=== PATIENT | male | born 1945 | race Caucasian/White ===

== ENCOUNTER 2018-02-28 21:01 | Emergency (ER) | payer MEDICARE, OTHER ==
[~2018-02-28] VITALS: Ht 182.9 cm; Wt 117.9 kg
[~2018-02-28 21:01] MED LIST: ALBU90OI61 INH; ALPHA LIPOIC A600 MG PO; Adult Low Dose81 MG PO; CARNITINE; CEPH500 PO; CLON1 PO; DULO60 PO; FISH1000 PO; Flunisolide25 ML NS; GEMF600 PO; GLUCOSAMINE &1 EACH PO; GRAPESEED OIL4000 ML PO; IBUP600 PO; MOME.1TC TOP; MONT10T PO; Multiple Vitam1 EAC1 PO; NEBI10 PO; OLME20 PO; OMEP20ER PO; Omeprazole20 M1; PRAV20 PO; RXCLIN PO; SITA50T2 PO; Saw Palmetto450 MG PO; TAMS.4ER PO; TOBDEXOPSU BOTHEYES; TRAM50 PO; VITA25000 PO; [UNRECOGNIZED DRUG - REMARK]; [UNRECOGNIZED DRUG - REMARK]
[2018-02-28 21:38] LABS: BASOPHILS ABSOLUTE AUTO 0.04 K/mm3 (0.00-0.23); BASOPHILS PERCENT AUTO 1 % (0-2); EOSINOPHILS ABSOLUTE AUTO 0.27 K/mm3 (0.00-0.68); EOSINOPHILS PERCENT AUTO 3 % (0-6); Hematocrit 44.9 % (37.0-53.0); Hemoglobin 14.9 g/dL (13.5-17.5); IMMATURE GRAN ABSOLUTE AUTO 0.02 K/mm3 (0.00-0.10); IMMATURE GRAN PERCENT AUTO 0 % (0-1); LYMPHOCYTES ABSOLUTE AUTO 1.97 K/mm3 (0.84-5.20); LYMPHOCYTES PERCENT AUTO 23 % (21-46); MONOCYTES ABSOLUTE AUTO 0.73 K/mm3 (0.16-1.47); MONOCYTES PERCENT AUTO 9 % (4-13); Mean Corpuscular HGB 31.2 pg (26.0-34.0); Mean Corpuscular HGB Conc 33.2 g/dL (31.5-36.5); Mean Corpuscular Volume 94 fL (80-100); Mean Platelet Volume 9.8 fL (9.1-12.4); NEUTROPHILS ABSOLUTE AUTO 5.41 K/mm3 (1.96-9.15); NEUTROPHILS PERCENT AUTO 64 % (41-73); Platelet Count 249 K/mm3 (150-400); RDW Coefficient Variation 12.6 % (11.7-14.2); RDW Standard Deviation 43.7 fL (35.1-46.3); Red Blood Cell Count 4.77 M/mm3 (4.30-5.90); White Blood Cell Count 8.44 K/mm3 (4.00-11.30)
[2018-02-28 21:55] LABS: Albumin, Blood 3.6 g/dL (3.4-5.0); Albumin/Globulin Ratio 0.9 (0.8-1.8); Bilirubin, Total 0.8 mg/dL (0.1-1.0); Bun/Creatinine Ratio 13.5 (12.0-20.0); Calcium, Blood 8.6 mg/dL (8.5-10.1); Creatinine, Blood 1.48 mg/dL (0.60-1.20); Globulin, Blood 3.8 g/dL (2.2-4.0); Potassium, Blood 4.1 mmol/L (3.5-5.5); Total Protein, Blood 7.4 g/dL (6.4-8.2)
[2018-02-28] MEDS ORDERED: Percocet 5-3251 EACH PO (23:39)
[2018-02-28] MEDS ORDERED: Zofran8 MG PO (23:54)
== END 2018-03-01 00:11 | disposition home or self-care (01) ==
LOC: ER 21:01
PROVIDERS: Emergency Medicine
DX: N13.2 Hydronephrosis with renal and ureteral calculous obstruction (principal); N18.4 Chronic kidney disease, stage 4 (severe); R79.89 Other specified abnormal findings of blood chemistry; J45.909 Unspecified asthma, uncomplicated; Z79.899 Other long term (current) drug therapy
CPT/HCPCS: 36415; 74176; 80053; 83690; 85025; 96374; 96375; 99284; J1200; J1885; J2765; J3010; J7120

== ENCOUNTER 2018-03-27 06:46 | Day surgery (SDC) | payer MEDICARE, OTHER ==
[~2018-03-27] VITALS: Ht 182.9 cm; Wt 119.1 kg
[~2018-03-27 06:46] MED LIST changes: +Percocet 5-3251 EACH PO; +Zofran8 MG PO
== END 2018-03-27 11:05 | disposition home or self-care (01) ==
LOC: ORSCSDS 06:46
PROVIDERS: Podiatrist Foot & Ankle Surgery
PROC: 0L8P0ZZ Division of Left Lower Leg Tendon, Open Approach (ICD-10-PCS; principal; 2018-03-27 08:15)
PROC: 0J8R0ZZ Division of Left Foot Subcutaneous Tissue and Fascia, Open Approach (ICD-10-PCS; principal; 2018-03-27 08:15)
DX: M24.572 Contracture, left ankle (principal); M72.2 Plantar fascial fibromatosis; M77.32 Calcaneal spur, left foot; I10 Essential (primary) hypertension; I48.91 Unspecified atrial fibrillation; I25.10 Atherosclerotic heart disease of native coronary artery without angina pectoris; E11.9 Type 2 diabetes mellitus without complications; Z79.84 Long term (current) use of oral hypoglycemic drugs; Z79.899 Other long term (current) drug therapy
CPT/HCPCS: 82947; J0171; J0690; J2250; J3010; J7040; J7120

== ENCOUNTER 2018-06-11 13:26 | Emergency (ER) | payer MEDICARE, OTHER ==
[~2018-06-11] VITALS: Ht 182.9 cm; Wt 117.9 kg
[2018-06-11 14:45] LABS: BASOPHILS ABSOLUTE AUTO 0.04 K/mm3 (0.00-0.23); BASOPHILS PERCENT AUTO 1 % (0-2); EOSINOPHILS ABSOLUTE AUTO 0.28 K/mm3 (0.00-0.68); EOSINOPHILS PERCENT AUTO 3 % (0-6); Hematocrit 42.6 % (37.0-53.0); Hemoglobin 14.2 g/dL (13.5-17.5); IMMATURE GRAN ABSOLUTE AUTO 0.03 K/mm3 (0.00-0.10); IMMATURE GRAN PERCENT AUTO 0 % (0-1); LYMPHOCYTES ABSOLUTE AUTO 1.63 K/mm3 (0.84-5.20); LYMPHOCYTES PERCENT AUTO 19 % (21-46); MONOCYTES ABSOLUTE AUTO 0.62 K/mm3 (0.16-1.47); MONOCYTES PERCENT AUTO 7 % (4-13); Mean Corpuscular HGB 31.2 pg (26.0-34.0); Mean Corpuscular HGB Conc 33.3 g/dL (31.5-36.5); Mean Corpuscular Volume 94 fL (80-100); Mean Platelet Volume 10.1 fL (9.1-12.4); NEUTROPHILS ABSOLUTE AUTO 5.94 K/mm3 (1.96-9.15); NEUTROPHILS PERCENT AUTO 69 % (41-73); Platelet Count 227 K/mm3 (150-400); RDW Coefficient Variation 12.3 % (11.7-14.2); RDW Standard Deviation 42.6 fL (35.1-46.3); Red Blood Cell Count 4.55 M/mm3 (4.30-5.90); White Blood Cell Count 8.54 K/mm3 (4.00-11.30)
[2018-06-11 15:02] LABS: Alanine Aminotransfer (ALT/SGP 38 U/L (12-78); Albumin, Blood 3.3 g/dL (3.4-5.0); Albumin/Globulin Ratio 0.9 (0.8-1.8); Alk Phos 75 U/L (50-136); Anion Gap 6 mmol/L (6-16); Aspartate Aminotrans (AST/SGOT 28 U/L (12-37); Bilirubin, Total 1.1 mg/dL (0.1-1.0); Blood Urea Nitrogen 22 mg/dL (8-24); Bun/Creatinine Ratio 17.7 (12.0-20.0); CO2, Blood 28 mmol/L (21-32); Calcium, Blood 8.3 mg/dL (8.5-10.1); Chloride, Blood 109 mmol/L (98-108); Creatinine, Blood 1.24 mg/dL (0.60-1.20); Globulin, Blood 3.5 g/dL (2.2-4.0); Glomerular Filtration Rate >60 (60-); Glucose, Blood 110 mg/dL (70-99); Potassium, Blood 4.5 mmol/L (3.5-5.5); Sodium, Blood 143 mmol/L (136-145); Total Protein, Blood 6.8 g/dL (6.4-8.2)
[2018-06-11] MEDS ORDERED: KETO10 PO (15:58)
[2018-06-11] MEDS ORDERED: ULTRA-LIGHT RO1 EACH MC (15:58)
[2018-06-11] MEDS ORDERED: Norco 5-325 Ta1 EACH PO (15:58)
== END 2018-06-11 16:20 | disposition home or self-care (01) ==
LOC: ER 13:26
PROVIDERS: Physician Assistant
DX: S76.111A Strain of right quadriceps muscle, fascia and tendon, initial encounter (principal); J45.909 Unspecified asthma, uncomplicated; X50.1XXA Overexertion from prolonged static or awkward postures, initial encounter
CPT/HCPCS: 29505; 73502; 80053; 85025; 96374; 99284-25; J3010

== ENCOUNTER 2019-01-14 07:25 | Day surgery (SDC) | payer MEDICARE, OTHER ==
[~2019-01-14] VITALS: Ht 182.9 cm; Wt 121.0 kg
[~2019-01-14 07:25] MED LIST changes: +ATOR40TA PO; +CARNITINE PO; +CLON2 PO; +COMBIVENT RESPIM4 GM INH; +Fish Oil 10001000 MG PO; +Flunisolide25 ML; +GNP GLUCOSAMIN1 EAC2 PO; +KETO10 PO; +MULTI VITAMIN1 EACH PO; +Norco 5-325 Ta1 EACH PO; +Omeprazole20 M1 PO; +SITA100T2 PO; +ULTRA-LIGHT RO1 EACH MC
== END 2019-01-14 09:49 | disposition home or self-care (01) ==
LOC: ORSCSDS 07:25
PROVIDERS: Internal Medicine Gastroenterology
PROC: 0DBL8ZX Excision of Transverse Colon, Via Natural or Artificial Opening Endoscopic, Diagnostic (ICD-10-PCS; principal; 2019-01-14 08:45)
DX: R19.4 Change in bowel habit (principal); D12.3 Benign neoplasm of transverse colon; K57.30 Diverticulosis of large intestine without perforation or abscess without bleeding; K64.8 Other hemorrhoids; E11.65 Type 2 diabetes mellitus with hyperglycemia; I10 Essential (primary) hypertension; G47.33 Obstructive sleep apnea (adult) (pediatric); I25.10 Atherosclerotic heart disease of native coronary artery without angina pectoris; I48.91 Unspecified atrial fibrillation; Z79.84 Long term (current) use of oral hypoglycemic drugs; Z79.899 Other long term (current) drug therapy
CPT/HCPCS: 82947; 88305; J0461; J1980; J2405; J2704; J7120

== ENCOUNTER 2019-02-11 07:26 | Day surgery (SDC) | payer MEDICARE, OTHER ==
[~2019-02-11] VITALS: Ht 185.4 cm; Wt 119.6 kg
[2019-02-11] MEDS ORDERED: NEBI10 (08:18)
--- NOTE | 2019-02-11 10:02 | NUR ---
02/11/19 1002 Elena Stern 5ML NORMAL SALINE USED TO ELEVATE CECAL POLYP
== END 2019-02-11 10:39 | disposition home or self-care (01) ==
LOC: ORSCSDS 07:26
PROVIDERS: Internal Medicine Gastroenterology
PROC: 0DBH8ZX Excision of Cecum, Via Natural or Artificial Opening Endoscopic, Diagnostic (ICD-10-PCS; principal; 2019-02-11 09:00)
PROC: 0DBL8ZX Excision of Transverse Colon, Via Natural or Artificial Opening Endoscopic, Diagnostic (ICD-10-PCS; principal; 2019-02-11 09:00)
PROC: 0DBK8ZX Excision of Ascending Colon, Via Natural or Artificial Opening Endoscopic, Diagnostic (ICD-10-PCS; principal; 2019-02-11 09:00)
DX: R19.4 Change in bowel habit (principal); D12.0 Benign neoplasm of cecum; D12.2 Benign neoplasm of ascending colon; D12.3 Benign neoplasm of transverse colon; K57.30 Diverticulosis of large intestine without perforation or abscess without bleeding; K64.8 Other hemorrhoids; G47.33 Obstructive sleep apnea (adult) (pediatric); I25.10 Atherosclerotic heart disease of native coronary artery without angina pectoris; I10 Essential (primary) hypertension; I48.91 Unspecified atrial fibrillation; E11.9 Type 2 diabetes mellitus without complications; E78.5 Hyperlipidemia, unspecified; Z79.84 Long term (current) use of oral hypoglycemic drugs; Z79.899 Other long term (current) drug therapy
CPT/HCPCS: 82947; 88305; J1980; J2405; J2704; J7120

== ENCOUNTER 2019-06-07 07:34 | Day surgery (SDC) | payer MEDICARE, OTHER ==
[~2019-06-07] VITALS: Ht 182.9 cm; Wt 118.0 kg
[~2019-06-07 07:34] MED LIST changes: +BUDE6HFA INH; +FLUT1DIS5 INH; +PRAZ1 PO
--- NOTE | 2019-06-07 09:35 | NUR ---
Ambulatory in Day Surgery. Surgical site prepped with 2% Chlorhexidine cloth wipe. History, Chart, Medications and Allergies reviewed before start of procedure. Lungs clear T/O to Auscultation. Patient confirms NPO status and agrees with scheduled surgery. Pre-Op teaching done. Pt verbalizes understanding. Patient reports completing Chlorhexadine shower X2 prior to admission to hospital.
--- NOTE | 2019-06-07 17:19 | NUR ---
SHIFT SUMMARY PT A&OX4, VSS, S/P R TKA, AQUACEL CDI, POLAR ALEXANDRA, TEDS, SCDS ON. DENIES PAIN AT THIS TIME. ANDRES PO, DENIES N&V. PHYSICAL THERAPY EVAL'D; PT UP TO CHAIR, STAND/PIVOT W/FWW & GB. AWAITING POST VOID. UP TO CHAIR. AT BEDSIDE. WILL REPORT TO ONCOMING RN.
--- NOTE | 2019-06-08 01:10 | NUR ---
0110: RECEIVED REPORT AND ASSUMED CARE OF PT FROM PREVIOUS RN. PT LYING ON LEFT SIDE IN BED WITH 2L O2 VIA NC BECAUSE HE "FORGOT CPAP AT HOME" PT DENIES PAIN @ THIS TIME. CALL LIGHT IN REACH.
[2019-06-08 03:49] LABS: BASOPHILS ABSOLUTE AUTO 0.02 K/mm3 (0.00-0.23); BASOPHILS PERCENT AUTO 0 % (0-2); EOSINOPHILS ABSOLUTE AUTO 0.01 K/mm3 (0.00-0.68); EOSINOPHILS PERCENT AUTO 0 % (0-6); Hematocrit 38.9 % (37.0-53.0); Hemoglobin 13.2 g/dL (13.5-17.5); IMMATURE GRAN ABSOLUTE AUTO 0.11 K/mm3 (0.00-0.10); IMMATURE GRAN PERCENT AUTO 1 % (0-1); LYMPHOCYTES ABSOLUTE AUTO 1.51 K/mm3 (0.84-5.20); LYMPHOCYTES PERCENT AUTO 8 % (21-46); MONOCYTES ABSOLUTE AUTO 0.84 K/mm3 (0.16-1.47); MONOCYTES PERCENT AUTO 5 % (4-13); Mean Corpuscular HGB 31.1 pg (26.0-34.0); Mean Corpuscular HGB Conc 33.9 g/dL (31.5-36.5); Mean Corpuscular Volume 92 fL (80-100); NEUTROPHILS ABSOLUTE AUTO 15.71 K/mm3 (1.96-9.15); NEUTROPHILS PERCENT AUTO 86 % (41-73); Platelet Count 265 K/mm3 (150-400); RDW Coefficient Variation 12.2 % (11.7-14.2); RDW Standard Deviation 40.6 fL (35.1-46.3); Red Blood Cell Count 4.24 M/mm3 (4.30-5.90)
[2019-06-08 04:10] LABS: Anion Gap 7 mmol/L (6-16); Blood Urea Nitrogen 31 mg/dL (8-24); Bun/Creatinine Ratio 25.2 (12.0-20.0); CO2, Blood 26 mmol/L (21-32); Calcium, Blood 7.9 mg/dL (8.5-10.1); Chloride, Blood 107 mmol/L (98-108); Creatinine, Blood 1.23 mg/dL (0.60-1.20); Glomerular Filtration Rate >60 (60-); Glucose, Blood 149 mg/dL (70-99); Magnesium, Blood 2.2 mg/dL (1.6-2.4); Sodium, Blood 140 mmol/L (136-145)
--- NOTE | 2019-06-08 05:50 | NUR ---
SUMMARY: POD [address] GUERRA. VSS, AFEBRILE. 2L 02 WHILE ASLEEP BECAUSE PT DID NOT BRING HOME CPAP. TOLERATING PO INTAKE WELL, VOIDING AND AMBULATES IN HALLS WITH FWW AND 1 ASSIST. PAIN WELL CONTROLLED WITH TYLENOL, TORDAL, AND 10MG ROXICODONE X2 THIS SHIFT. ANTICIPATE PT/OT TODAY, ENCOURAGE OOB ACTIVITY AND ANTICIPATED DC HOME LATER THIS DAY.
[2019-06-08] MEDS ORDERED: ROXICODONE5 MG PO (10:03)
[2019-06-08] MEDS ORDERED: ACET500 PO (10:04)
[2019-06-08] MEDS ORDERED: XARELTO15 MG PO (10:04)
--- NOTE | 2019-06-08 13:31 | NUR ---
top half of dressing saturated with blood and oozing out side onto 4x4's held in place with duy wrap. Everything removed, incision cleansed with hydrogen peroxide top portion of incision with slow oozing of blood. covered with new aquacel not sealing well on patients skin. reinforced and pressure applied with new duy wrap. Dr. Finney notified. Hold Xarelto for 2 days, Keflex 500mg BID, follow up with Dr. Finney in 1 week.
--- NOTE | 2019-06-08 15:16 | NUR ---
DISCHARGE SUMMARY PT A&OX4, VSS, LEFT FLOOR VIA WC WITH ARMOR OFFICER, TO GO HOME WITH , WITH ALL PERSONAL POSSESSIONS INCLUDING DISCHARGE PACKET INCLUDING 1 NARC SCRIPT AND SEVERAL AQUACEL, 4X4S, ABD PADS, MILE WRAPS. SCRIPTS WERE FAXED/CALLED TO [facility]: KEFLEX AND XARELTO (START 06/10/19). DC INSTRUCTIONS PROVIDED. PT REP UNDERSTANDING THOSE INSTRUCTIONS INCLUDING 1 WK FU WITH SURGEON, WHEN TO CALL SURGEON, WHEN AND HOW TO CHANGE DRESSINGS, NOT TO START XARELTO UNTIL 06/10, OK TO SHOWER NO TUBS/JACUZZI SUBMERSION, SHORT FREQ AMBULATION WITH FWW. IV DC'D.
== END 2019-06-08 14:27 | disposition home or self-care (01) ==
LOC: ORSCMMR 07:34 → ORD 10:30 → ORSCMMR 10:30 → ORD 10:45 → SURS 14:42 → ORSCMMR 06-08 14:27
PROVIDERS: Orthopaedic Surgery
PROC: 0SRC0J9 Replacement of Right Knee Joint with Synthetic Substitute, Cemented, Open Approach (ICD-10-PCS; principal; 2019-06-07 10:30)
DX: M17.11 Unilateral primary osteoarthritis, right knee (principal); I12.9 Hypertensive chronic kidney disease with stage 1 through stage 4 chronic kidney disease, or unspecified chronic kidney disease; E11.22 Type 2 diabetes mellitus with diabetic chronic kidney disease; N18.9 Chronic kidney disease, unspecified; G47.33 Obstructive sleep apnea (adult) (pediatric); J45.909 Unspecified asthma, uncomplicated; E66.01 Morbid (severe) obesity due to excess calories; Z68.35 Body mass index [BMI] 35.0-35.9, adult; Z79.899 Other long term (current) drug therapy
CPT/HCPCS: 36415; 73560-RT; 80048; 82947; 83735; 85025; 88300; 94640; 94760; 97110; 97116; 97162; 97530; C1776; J0171; J0690; J0735; J1100; J1885; J2250; J2370; J2405; J2704; J2765; J2795; J3010; J7120

== ENCOUNTER 2020-10-06 11:05 | Day surgery (SDC) | payer MEDICARE, OTHER ==
[~2020-10-06] VITALS: Ht 185.4 cm; Wt 121.3 kg
[~2020-10-06 11:05] MED LIST changes: +ACET500 PO; +ROXICODONE5 MG PO; +XARELTO15 MG PO
--- NOTE | 2020-10-06 13:10 | NUR ---
10/06/20 1310 Kay Harris S PT.'S BP 204/96, SEE OTHER VITALS BP 201/94, 213/98. PT. HAVING RIGHT FLANK PAIN RATING A "9". PT. ALSO HAS RIGHT HIP PAIN ALL THE TIME. PT. VERBALIZES KNOWING HIS BP IS HIGH TODAY & VERBALIZES HIS BP IS USUALLY IN THE 120'S. DR. GARCIA & DR. CORONA NOTIFIED. PER DR. GARCIA PT. NEEDS TO GO TO THE ER TO CHECK OUT WHY HE IS HAVING PAIN & FOR HIS ELEVATED BP. PT. NOTIFIED OF THIS & HE VERBALIZES THAT HE ISN'T LEAVING UNTIL HE HAS HIS PROCEDURE DONE. PT. INSTRUCTED THAT DR. CORONA WILL COME TALK WITH HIM. PT. LAYING ON HIS LEFT SIDE WITH A WARM BLANKET ON HIS RIGHT FLANK. PT. VERBALIZES BEING WARM ENOUGH. CALL LIGHT IS WITHIN REACH.
--- NOTE | 2020-10-06 16:17 | NUR ---
10/06/20 1617 Kay Harris S PT. DROWSY BUT OPENS EYES WHEN ASKED TO. PT. STATES "ALOT BETTER" TO HIS RIGHT FLANK PAIN. DR. GARCIA CHECKING ON HIM. RIGHT FLANK PAIN "4". 151 PT. C/O RIGHT FLANK PAIN GETTING WORSE NOW, ORDER WAS GIVEN FOR 25MCG IV FENTANYL PER DR. GARCIA BUT PT. VERBALIZED NOT WANTING THAT DRUG. DR. GARCIA & DR. CORONA VERBALIZING THAT PT. CAN GO TO THE ER SINCE HIS PAIN IS WORSE. PT. RATING HIS PAIN A "9-10. BP 189/81. PT. VERBALIZED NEEDING TO USE URINAL, PT. WITH 50ML CLEAR URINE OUT. PT. VERBALIZED THAT WHEN HE URINATED THAT IT WAS SLOW TO START & WAS BURNING. 151 ORDER WAS GIVEN PER DR. CORONA THAT IT WAS OK TO LEAVE IV IN WHEN PT. TAKEN TO ER. PT. WANTED [facility] [place] TO [place]KE HIM TO THE ER. WAS NOTIFIED OF EVENTS ABOVE & THAT WE WOULD MEET HER IN ER. 1530 PT. VERBALIZING WANTING TO TAKE THE FENTANYL BECAUSE HIS PAIN WAS A "10", 25MCG IV FENTANYL GIVEN.V.S. 152 BP 182/88, HR 59, SATS 93%RA, RR 20. PT. ENC. TO TAKE DEEP BREATHS, PT. VERBALIZED IT HURT HIS RIGHT FLANK AREA TO TAKE DEEP BREATHS, PT. LAYING ON HIS LEFT SIDE. 1540 PT. HELPED INTO WC WITH 2 SBA. PT. VERBALIZES FENTANYL NOT HELPING HIS PAIN. PT. INSTRUCTED THAT WE WOULD TAKE HIM TO ER & THEY COULD CONTINUE ASSESSING HIS PAIN. PT. WAS THIRSTY BUT INSTRUCTED PT. THAT HE PROBABLY SHOULDN'T DRINK ANYTHING AT THIS TIME IN CASE THEY NEEDED TO DO ANY TEST. PT. AGREED. ER WAS CALLED & SPOKE TO GRACIA CAMERON & GAVE HER REPORT ON THIS PT. GRACIA NOTIFIED THAT THIS WAS NOT A DR./[facility] ADMIT, IT WAS A PT. ADMIT BUT TOOK PT. IN WC THRU BACK HALLWAY TO FRONT ADMITTING AREA OF ER. PT.'S WAS WAITING FOR PT. IN ER WAITING AREA. PT. BELONGINGS, CLOTHES, CANE, DISCHARGE INSTRUCTION WITH PT. TO ER. PT. WAS TAKEN OVER IN GOWN FROM [facility].
[2020-10-06] MEDS ORDERED: TAMS.4ER PO (19:57)
[2020-10-06] MEDS ORDERED: HYDACE10B PO (19:57)
== END 2020-10-06 15:40 | disposition home or self-care (01) ==
LOC: ORSCSDS 11:05
PROVIDERS: Internal Medicine Gastroenterology
PROC: 0DBL8ZX Excision of Transverse Colon, Via Natural or Artificial Opening Endoscopic, Diagnostic (ICD-10-PCS; principal; 2020-10-06 12:45)
PROC: 0DBP8ZX Excision of Rectum, Via Natural or Artificial Opening Endoscopic, Diagnostic (ICD-10-PCS; principal; 2020-10-06 12:45)
PROC: 0DBH8ZX Excision of Cecum, Via Natural or Artificial Opening Endoscopic, Diagnostic (ICD-10-PCS; principal; 2020-10-06 12:45)
PROC: 0DB58ZX Excision of Esophagus, Via Natural or Artificial Opening Endoscopic, Diagnostic (ICD-10-PCS; principal; 2020-10-06 12:45)
PROC: 0D757ZZ Dilation of Esophagus, Via Natural or Artificial Opening (ICD-10-PCS; principal; 2020-10-06 12:45)
PROC: 0DBN8ZX Excision of Sigmoid Colon, Via Natural or Artificial Opening Endoscopic, Diagnostic (ICD-10-PCS; principal; 2020-10-06 12:45)
DX: R13.10 Dysphagia, unspecified (principal); Z86.010 Personal history of colon polyps; K21.9 Gastro-esophageal reflux disease without esophagitis; D12.3 Benign neoplasm of transverse colon; D12.0 Benign neoplasm of cecum; D12.5 Benign neoplasm of sigmoid colon; K63.5 Polyp of colon; K62.1 Rectal polyp; K57.30 Diverticulosis of large intestine without perforation or abscess without bleeding; K64.8 Other hemorrhoids; I10 Essential (primary) hypertension; I25.10 Atherosclerotic heart disease of native coronary artery without angina pectoris; I48.91 Unspecified atrial fibrillation; J44.9 Chronic obstructive pulmonary disease, unspecified; G47.33 Obstructive sleep apnea (adult) (pediatric); E66.9 Obesity, unspecified; Z68.35 Body mass index [BMI] 35.0-35.9, adult; J45.909 Unspecified asthma, uncomplicated; Z79.899 Other long term (current) drug therapy; N13.2 Hydronephrosis with renal and ureteral calculous obstruction
CPT/HCPCS: 74176; 80053; 81001; 82947; 83690; 85025; 88305; 88312; 93005; 93010; 96374; 99284-25; A9270; J1885; J2704; J3010; J7030; J7120

== ENCOUNTER 2020-10-06 15:43 | Emergency (ER) | payer MEDICARE, OTHER ==
[~2020-10-06] VITALS: Ht 185.4 cm; Wt 120.2 kg
[2020-10-06 17:53] LABS: Source, Urine Clean Catch
[2020-10-06 17:57] LABS: Appearance, Urine Clear (Clear); Bilirubin, Urine Neg (Neg); Blood, Urine 3+ (Neg); Color, Urine Yellow (P-Yellow); Glucose Qualitative, Urine Neg (Neg); Ketones, Urine 2+ (Neg); Leukocyte Esterase, Urine Neg (Neg); Nitrite, Urine Neg (Neg); Protein, Urine 2+ (Neg); Specific Gravity, Urine 1.025 (1.003-1.022); Urobilinogen, Urine NORM (Normal)
[2020-10-06 18:08] LABS: White Blood Cells, Urine Not Seen /hpf (0-5)
[2020-10-06 18:09] LABS: Bacteria Not Seen /hpf; Squamous Epithelial Cells Not Seen /hpf (Few)
[2020-10-06 18:39] LABS: BASOPHILS ABSOLUTE AUTO 0.03 K/mm3 (0.00-0.23); BASOPHILS PERCENT AUTO 0 % (0-2); EOSINOPHILS ABSOLUTE AUTO 0.05 K/mm3 (0.00-0.68); EOSINOPHILS PERCENT AUTO 0 % (0-6); Hematocrit 45.2 % (37.0-53.0); Hemoglobin 14.8 g/dL (13.5-17.5); IMMATURE GRAN ABSOLUTE AUTO 0.04 K/mm3 (0.00-0.10); IMMATURE GRAN PERCENT AUTO 0 % (0-1); LYMPHOCYTES ABSOLUTE AUTO 0.85 K/mm3 (0.84-5.20); LYMPHOCYTES PERCENT AUTO 7 % (21-46); MONOCYTES ABSOLUTE AUTO 0.86 K/mm3 (0.16-1.47); MONOCYTES PERCENT AUTO 7 % (4-13); Mean Corpuscular HGB Conc 32.7 g/dL (31.5-36.5); Mean Corpuscular Volume 95 fL (80-100); Mean Platelet Volume 10.4 fL (9.1-12.4); NEUTROPHILS ABSOLUTE AUTO 10.96 K/mm3 (1.96-9.15); NEUTROPHILS PERCENT AUTO 86 % (41-73); Platelet Count 242 K/mm3 (150-400); RDW Coefficient Variation 12.6 % (11.7-14.2); RDW Standard Deviation 44.2 fL (35.1-46.3); Red Blood Cell Count 4.77 M/mm3 (4.30-5.90); White Blood Cell Count 12.79 K/mm3 (4.00-11.30)
[2020-10-06 19:01] LABS: Albumin, Blood 3.4 g/dL (3.4-5.0); Bilirubin, Total 1.2 mg/dL (0.1-1.0); Bun/Creatinine Ratio 12.8 (12.0-20.0); Creatinine, Blood 1.48 mg/dL (0.60-1.20); Globulin, Blood 3.5 g/dL (2.2-4.0); Potassium, Blood 3.9 mmol/L (3.5-5.5); Total Protein, Blood 6.9 g/dL (6.4-8.2)
[2020-10-06] MEDS ORDERED: TAMS.4ER PO (19:57)
[2020-10-06] MEDS ORDERED: HYDACE10B PO (19:57)
== END 2020-10-06 20:37 | disposition home or self-care (01) ==
LOC: ER 15:43
PROVIDERS: Emergency Medicine; Physician Assistant
DX: N13.2 Hydronephrosis with renal and ureteral calculous obstruction (principal); I10 Essential (primary) hypertension; K21.9 Gastro-esophageal reflux disease without esophagitis; E11.9 Type 2 diabetes mellitus without complications; J45.909 Unspecified asthma, uncomplicated; Z88.8 Allergy status to other drugs, medicaments and biological substances; Z79.899 Other long term (current) drug therapy
CPT/HCPCS: 74176; 80053; 81001; 83690; 85025; 93005; 93010; 96374; 99284-25; A9270; J1885; J7030

== ENCOUNTER → 2020-10-17 | Outpatient (CLI) | payer MEDICARE, OTHER ==
[~2020-10-17] MED LIST changes: +HYDACE10B PO
== END ==
LOC: LAB SHORT 14:05 → PLD 14:05
DX: L30.8 Other specified dermatitis (principal); L82.1 Other seborrheic keratosis
CPT/HCPCS: 88312

== ENCOUNTER 2021-08-24 01:01 | Emergency (ER) | payer MEDICARE, OTHER ==
[~2021-08-24] VITALS: Ht 182.9 cm; Wt 117.9 kg
[2021-08-24 02:14] LABS: BASOPHILS ABSOLUTE AUTO 0.02 K/mm3 (0.00-0.23); BASOPHILS PERCENT AUTO 0 % (0-2); Calcium, Blood 8.3 mg/dL (8.5-10.1); Creatinine, Blood 1.35 mg/dL (0.60-1.20); EOSINOPHILS PERCENT AUTO 5 % (0-6); Hematocrit 38.3 % (37.0-53.0); Hemoglobin 12.5 g/dL (13.5-17.5); IMMATURE GRAN ABSOLUTE AUTO 0.04 K/mm3 (0.00-0.10); IMMATURE GRAN PERCENT AUTO 1 % (0-1); LYMPHOCYTES ABSOLUTE AUTO 0.95 K/mm3 (0.84-5.20); LYMPHOCYTES PERCENT AUTO 15 % (21-46); MONOCYTES ABSOLUTE AUTO 0.72 K/mm3 (0.16-1.47); MONOCYTES PERCENT AUTO 12 % (4-13); Mean Corpuscular HGB 31.5 pg (26.0-34.0); Mean Corpuscular HGB Conc 32.6 g/dL (31.5-36.5); Mean Corpuscular Volume 97 fL (80-100); NEUTROPHILS ABSOLUTE AUTO 4.22 K/mm3 (1.96-9.15); NEUTROPHILS PERCENT AUTO 68 % (41-73); Platelet Count 205 K/mm3 (150-400); Potassium, Blood 4.2 mmol/L (3.5-5.5); RDW Coefficient Variation 12.3 % (11.7-14.2); RDW Standard Deviation 43.8 fL (35.1-46.3); Red Blood Cell Count 3.97 M/mm3 (4.30-5.90); White Blood Cell Count 6.25 K/mm3 (4.00-11.30)
[2021-08-24] MEDS ORDERED: BENZ100A PO (04:58)
== END 2021-08-24 05:13 | disposition home or self-care (01) ==
LOC: ER 01:01
PROVIDERS: Student in an Organized Health Care Education/Training Program
DX: S29.011A Strain of muscle and tendon of front wall of thorax, initial encounter (principal); M62.89 Other specified disorders of muscle; Z88.8 Allergy status to other drugs, medicaments and biological substances; Z79.899 Other long term (current) drug therapy; Z79.891 Long term (current) use of opiate analgesic; J45.909 Unspecified asthma, uncomplicated; I10 Essential (primary) hypertension; K21.9 Gastro-esophageal reflux disease without esophagitis; E11.9 Type 2 diabetes mellitus without complications; J44.9 Chronic obstructive pulmonary disease, unspecified; X58.XXXA Exposure to other specified factors, initial encounter
CPT/HCPCS: 36415; 74177; 80048; 83690; 85018; 85025; 93005; 93010; 96372; 99284-25; A9270; J1885; Q9967

== ENCOUNTER 2021-09-04 12:05 | Emergency (ER) | payer MEDICARE, OTHER ==
[~2021-09-04] VITALS: Ht 182.9 cm; Wt 120.2 kg
[~2021-09-04 12:05] MED LIST changes: +BENZ100A PO
[2021-09-04 12:39] LABS: BASOPHILS ABSOLUTE AUTO 0.04 K/mm3 (0.00-0.23); BASOPHILS PERCENT AUTO 0 % (0-2); EOSINOPHILS ABSOLUTE AUTO 0.57 K/mm3 (0.00-0.68); EOSINOPHILS PERCENT AUTO 6 % (0-6); Hematocrit 42.4 % (37.0-53.0); Hemoglobin 13.6 g/dL (13.5-17.5); IMMATURE GRAN ABSOLUTE AUTO 0.03 K/mm3 (0.00-0.10); IMMATURE GRAN PERCENT AUTO 0 % (0-1); LYMPHOCYTES ABSOLUTE AUTO 2.01 K/mm3 (0.84-5.20); LYMPHOCYTES PERCENT AUTO 22 % (21-46); MONOCYTES ABSOLUTE AUTO 0.63 K/mm3 (0.16-1.47); MONOCYTES PERCENT AUTO 7 % (4-13); Mean Corpuscular HGB 31.2 pg (26.0-34.0); Mean Corpuscular HGB Conc 32.1 g/dL (31.5-36.5); Mean Corpuscular Volume 97 fL (80-100); Mean Platelet Volume 9.9 fL (9.1-12.4); NEUTROPHILS ABSOLUTE AUTO 5.86 K/mm3 (1.96-9.15); NEUTROPHILS PERCENT AUTO 64 % (41-73); Platelet Count 348 K/mm3 (150-400); RDW Coefficient Variation 12.5 % (11.7-14.2); RDW Standard Deviation 44.4 fL (35.1-46.3); Red Blood Cell Count 4.36 M/mm3 (4.30-5.90); White Blood Cell Count 9.14 K/mm3 (4.00-11.30)
[2021-09-04 12:53] LABS: Albumin, Blood 3.2 g/dL (3.4-5.0); Albumin/Globulin Ratio 0.9 (0.8-1.8); Bilirubin, Total 1.1 mg/dL (0.1-1.0); Bun/Creatinine Ratio 18.2 (12.0-20.0); Calcium, Blood 9.2 mg/dL (8.5-10.1); Creatinine, Blood 1.21 mg/dL (0.60-1.20); Globulin, Blood 3.7 g/dL (2.2-4.0); Potassium, Blood 4.4 mmol/L (3.5-5.5); Total Protein, Blood 6.9 g/dL (6.4-8.2)
[2021-09-04 15:45] LABS: Source, Urine Clean Catch
[2021-09-04 15:49] LABS: Appearance, Urine Clear (Clear); Bilirubin, Urine Neg (Neg); Blood, Urine Neg (Neg); Color, Urine Yellow (P-Yellow); Glucose Qualitative, Urine Neg (Neg); Ketones, Urine Neg (Neg); Leukocyte Esterase, Urine Neg (Neg); Nitrite, Urine Neg (Neg); Protein, Urine 2+ (Neg); Urobilinogen, Urine NORM (Normal)
[2021-09-04 16:08] LABS: Amorphous Light (0-Heavy); Bacteria Rare /hpf; Red Blood Cells, Urine 0-2 /hpf (0-2); Squamous Epithelial Cells Rare /hpf (Few); White Blood Cells, Urine 0-2 /hpf (0-5)
== END 2021-09-04 18:05 | disposition home or self-care (01) ==
LOC: ER 12:05
PROVIDERS: Physician Assistant
DX: R58 Hemorrhage, not elsewhere classified (principal); Z88.8 Allergy status to other drugs, medicaments and biological substances; Z79.899 Other long term (current) drug therapy; Z79.891 Long term (current) use of opiate analgesic; I10 Essential (primary) hypertension; K21.9 Gastro-esophageal reflux disease without esophagitis; E11.9 Type 2 diabetes mellitus without complications; J44.9 Chronic obstructive pulmonary disease, unspecified
CPT/HCPCS: 36415; 74177; 80053; 81001; 83690; 85025; 99284-25; Q9967

== ENCOUNTER → 2021-11-08 | Outpatient (CLI) | payer MEDICARE, OTHER | END | disposition home or self-care (01) | LOC: LAB SHORT 14:59 → LAB 14:59 | DX: R30.9 Painful micturition, unspecified (principal) | CPT/HCPCS: 87086 ==

== ENCOUNTER 2022-06-28 22:54 | Emergency (ER) | payer MEDICARE, OTHER ==
[~2022-06-28] VITALS: Ht 188 cm; Wt 117.9 kg
[2022-06-28] MEDS ORDERED: MELATONIN5 M1 PO (23:29)
[2022-06-28] MEDS ORDERED: FISH OIL 1,2001 EAC7 PO (23:30)
[2022-06-28] MEDS ORDERED: MAGCHL64ER (23:31)
[2022-06-28] MEDS ORDERED: 1/2 NS 250ml250 ML (23:31)
[2022-06-28 23:41] LABS: BASOPHILS ABSOLUTE AUTO 0.03 K/mm3 (0.00-0.23); BASOPHILS PERCENT AUTO 0 % (0-2); EOSINOPHILS ABSOLUTE AUTO 0.63 K/mm3 (0.00-0.68); EOSINOPHILS PERCENT AUTO 9 % (0-6); Hematocrit 40.6 % (37.0-53.0); Hemoglobin 14.1 g/dL (13.5-17.5); IMMATURE GRAN ABSOLUTE AUTO 0.03 K/mm3 (0.00-0.10); IMMATURE GRAN PERCENT AUTO 0 % (0-1); LYMPHOCYTES ABSOLUTE AUTO 1.94 K/mm3 (0.84-5.20); LYMPHOCYTES PERCENT AUTO 26 % (21-46); MONOCYTES ABSOLUTE AUTO 0.73 K/mm3 (0.16-1.47); MONOCYTES PERCENT AUTO 10 % (4-13); Mean Corpuscular HGB Conc 34.7 g/dL (31.5-36.5); Mean Corpuscular Volume 92 fL (80-100); Mean Platelet Volume 10.2 fL (9.1-12.4); NEUTROPHILS ABSOLUTE AUTO 4.05 K/mm3 (1.96-9.15); NEUTROPHILS PERCENT AUTO 55 % (41-73); Platelet Count 221 K/mm3 (150-400); RDW Coefficient Variation 12.6 % (11.7-14.2); Red Blood Cell Count 4.41 M/mm3 (4.30-5.90); White Blood Cell Count 7.41 K/mm3 (4.00-11.30)
[2022-06-29] LABS: Albumin, Blood 3.2 g/dL (3.4-5.0); Albumin/Globulin Ratio 0.9 (0.8-1.8); Bilirubin, Total 0.5 mg/dL (0.1-1.0); Bun/Creatinine Ratio 18.6 (12.0-20.0); Creatinine, Blood 1.18 mg/dL (0.60-1.20); Globulin, Blood 3.6 g/dL (2.2-4.0); Total Protein, Blood 6.8 g/dL (6.4-8.2)
[2022-06-29] MEDS ORDERED: AZIT250 PO (02:24)
[2022-06-29] MEDS ORDERED: PRED20 PO (02:24)
== END 2022-06-29 03:20 | disposition home or self-care (01) ==
LOC: ER 22:54
PROVIDERS: Emergency Medicine
DX: J44.1 Chronic obstructive pulmonary disease with (acute) exacerbation (principal); K21.9 Gastro-esophageal reflux disease without esophagitis; E11.9 Type 2 diabetes mellitus without complications; I10 Essential (primary) hypertension; Z79.899 Other long term (current) drug therapy
CPT/HCPCS: 36415; 71045; 80053; 84484; 85025; 93005; 93010; 94640; 94664; 96374; 99285-25; J2930

== ENCOUNTER 2023-05-03 14:29 | Emergency (ER) | payer MEDICARE, OTHER ==
[~2023-05-03] VITALS: Ht 182.9 cm; Wt 120.2 kg
[~2023-05-03 14:29] MED LIST changes: +1/2 NS 250ml250 ML; +AZIT250 PO; +FISH OIL 1,2001 EAC7 PO; +MAGCHL64ER; +MELATONIN5 M1 PO; +PRED20 PO
[2023-05-03 14:40] VITALS: BP 164/84
[2023-05-03 15:40] LABS: BASOPHILS ABSOLUTE AUTO 0.02 K/mm3 (0.00-0.23); BASOPHILS PERCENT AUTO 0 % (0-2); EOSINOPHILS ABSOLUTE AUTO 0.06 K/mm3 (0.00-0.68); EOSINOPHILS PERCENT AUTO 1 % (0-6); Hematocrit 40.8 % (37.0-53.0); Hemoglobin 14.2 g/dL (13.5-17.5); IMMATURE GRAN ABSOLUTE AUTO 0.02 K/mm3 (0.00-0.10); IMMATURE GRAN PERCENT AUTO 0 % (0-1); LYMPHOCYTES ABSOLUTE AUTO 0.62 K/mm3 (0.84-5.20); LYMPHOCYTES PERCENT AUTO 12 % (21-46); MONOCYTES ABSOLUTE AUTO 0.69 K/mm3 (0.16-1.47); MONOCYTES PERCENT AUTO 13 % (4-13); Mean Corpuscular HGB 32.2 pg (26.0-34.0); Mean Corpuscular HGB Conc 34.8 g/dL (31.5-36.5); Mean Corpuscular Volume 93 fL (80-100); NEUTROPHILS ABSOLUTE AUTO 3.96 K/mm3 (1.96-9.15); NEUTROPHILS PERCENT AUTO 74 % (41-73); RDW Coefficient Variation 12.3 % (11.7-14.2); RDW Standard Deviation 41.9 fL (35.1-46.3); Red Blood Cell Count 4.41 M/mm3 (4.30-5.90); White Blood Cell Count 5.37 K/mm3 (4.00-11.30)
[2023-05-03 15:58] LABS: Albumin, Blood 3.3 g/dL (3.4-5.0); Bilirubin, Total 0.7 mg/dL (0.1-1.0); Bun/Creatinine Ratio 14.2 (12.0-20.0); Calcium, Blood 8.3 mg/dL (8.5-10.1); Creatinine, Blood 1.13 mg/dL (0.60-1.20); Globulin, Blood 3.3 g/dL (2.2-4.0); Potassium, Blood 3.8 mmol/L (3.5-5.5); Total Protein, Blood 6.6 g/dL (6.4-8.2)
[2023-05-03 16:00] LABS: Mean Platelet Volume 10.7 fL (9.1-12.4); Platelet Count 163 K/mm3 (150-400)
[2023-05-03] MEDS ORDERED: ONDA4ODT MM (17:45)
== END 2023-05-03 18:31 | disposition home or self-care (01) ==
LOC: ER 14:29
PROVIDERS: Emergency Medicine
DX: U07.1 COVID-19 (principal); Z79.899 Other long term (current) drug therapy; J44.9 Chronic obstructive pulmonary disease, unspecified; I10 Essential (primary) hypertension; K21.9 Gastro-esophageal reflux disease without esophagitis; E11.9 Type 2 diabetes mellitus without complications
CPT/HCPCS: 71045; 80053; 85025; 93005; 93010; 96360; 99285-25; J7030

== ENCOUNTER 2024-05-31 09:06 | Emergency (ER) | payer MEDICARE, OTHER ==
[~2024-05-31] VITALS: Ht 182.9 cm; Wt 115.7 kg
[~2024-05-31 09:06] MED LIST changes: +ONDA4ODT MM
[2024-05-31 09:13] VITALS: BP 125/84
[2024-05-31] MEDS ORDERED: Ketorolac Tromethamine 30mg Vial IM ONE (09:20)
[2024-05-31] MEDS ORDERED: Methocarbamol 500 MG Tab PO ONE (09:20)
[2024-05-31] MEDS ORDERED: HYDROcodone 7.5-APAP 325 TAB PO ONE (10:15)
[2024-05-31] MEDS ORDERED: PRED20 PO (11:01)
[2024-05-31] MEDS ORDERED: IBUP800 PO (11:01)
[2024-05-31] MEDS ORDERED: Robaxin750 MG PO (11:01)
== END 2024-05-31 11:05 | disposition home or self-care (01) ==
LOC: ER 09:06
DX: M54.50 Low back pain, unspecified (principal); G89.29 Other chronic pain; J44.89 Other specified chronic obstructive pulmonary disease; I10 Essential (primary) hypertension; K21.9 Gastro-esophageal reflux disease without esophagitis; E11.9 Type 2 diabetes mellitus without complications; Z79.52 Long term (current) use of systemic steroids; Z79.899 Other long term (current) drug therapy; Z79.51 Long term (current) use of inhaled steroids
CPT/HCPCS: 72100; 96372; 99283-25; A9270; J1885